=== PATIENT | female | born 1965 | race Caucasian/White ===

== ENCOUNTER 2018-12-22 22:20 | Inpatient (IN) | payer BC ==
[~2018-12-22] VITALS: Ht 165.1 cm; Wt 70.3 kg
[2018-12-22 22:24] VITALS: BP 132/94
[2018-12-22] MEDS ORDERED: MAXZIDE-25 MG1 EACH PO (22:29)
[2018-12-22] MEDS ORDERED: AMLODIPINE BESY10 MG PO (22:29)
[2018-12-22] MEDS ORDERED: ESTROGEN TOP (22:30)
[2018-12-22] MEDS ORDERED: ALLEGRA-D 12 H1 EAC1 PO (22:31)
[2018-12-22 22:51] LABS: ABSOLUTE NEUTROPHILS 16.4 thou/uL (1.4-8.2); BASOPHILS 0.5 % (0.0-2.0); EOSINOPHILS 0.1 % (0.0-3.0); HEMATOCRIT 44.5 % (37.0-47.0); HEMOGLOBIN 15.6 gm/dL (12.0-15.0); LYMPHOCYTES 3.8 % (24.0-44.0); MCH 30.3 pg (26.0-34.0); MCV 86.6 fL (80.0-100.0); MONOCYTES 3.9 % (1.0-8.0); PLATELET COUNT 310 thou/uL (150-400); POLYS 91.7 % (36.0-66.0); RBC 5.14 mil/uL (4.20-5.00); RDW 12.7 % (10.5-14.5); WBC 17.9 thou/uL (4.0-11.0)
[2018-12-22 23:07] LABS: ALBUMIN 4.8 g/dL (3.4-5.0); ANION GAP 11 mmol/L (7-16); BUN 9 mg/dL (7-18); CALCIUM 10.2 mg/dL (8.5-10.1); CHLORIDE 92 mmol/L (98-107); CO2 31 mmol/L (21-32); CREATININE 0.7 mg/dL (0.6-1.0); GLUCOSE 187 mg/dL (74-106); LIPASE 12122 U/L (73-393); SGOT 31 U/L (15-37); SGPT 69 U/L (30-65); SODIUM 134 mmol/L (136-145); TOTAL PROTEIN 8.7 g/dL (6.4-8.2); TROPONIN-I <0.06 ng/mL (<0.06)
[2018-12-22 23:08] LABS: POTASSIUM 2.6 mmol/L (3.5-5.1)
--- NOTE | 2018-12-22 23:08 | NUR ---
DR. GLYNN NOTIFIED OF CRITICAL POTASSIUM LEVEL 2.6
[2018-12-22 23:11] LABS: URINE BILIRUBIN NEGATIVE (Negative); URINE BLOOD NEGATIVE (Negative); URINE CLARITY CLEAR; URINE COLOR YELLOW; URINE GLUCOSE-RANDOM* NEGATIVE (Negative); URINE KETONES NEGATIVE (Negative); URINE LEUKOCYTES-REFLEX NEGATIVE (Negative); URINE NITRITE-REFLEX NEGATIVE (Negative); URINE PROTEIN (DIPSTICK) NEGATIVE (Negative); URINE UROBILINOGEN 0.2 E.U./dl (0.2-1.0)
[2018-12-22 23:54] LABS: CHOLESTEROL 275 mg/dL (<200); HDL CHOLESTEROL 54 mg/dL (>40); LDL CHOLESTEROL 199 mg/dL (<100); TC:HDL 5.1 Ratio (Not establshd); TRIGLYCERIDE 111 mg/dL (<150); VLDL 22 mg/dL (<40)
[2018-12-22 23:58] LABS: SERUM ASSESSMENT Clear
[2018-12-23] VITALS (8 sets, daily range): BP systolic 104–153; BP diastolic 69–84
--- NOTE | 2018-12-23 00:45 | NUR ---
PT ARRIVED ON UNIT FROM ER AT 0030. PT C/O MILD PAIN IN ABD, SAID PAIN MEDS IN ER HELPED. FLUIDS STARTED AND INFUSION OF KCL CONTINUED. PT DENIED NAUSEA AT THIS TIME. PT DENIED ANY FURTHER CONCERNS AT THIS TIME. WILL CONTINUE TO MONITOR.
[2018-12-23 05:07] LABS: HEMATOCRIT 38.3 % (37.0-47.0); MCH 30.5 pg (26.0-34.0); MCHC 35.3 g/dL (28.0-37.0); MCV 86.2 fL (80.0-100.0); RBC 4.44 mil/uL (4.20-5.00); RDW 12.6 % (10.5-14.5); WBC 15.8 thou/uL (4.0-11.0)
[2018-12-23 05:17] LABS: HEMOGLOBIN 13.5 gm/dL (12.0-15.0)
[2018-12-23 05:23] LABS: CALCIUM 8.8 mg/dL (8.5-10.1); CREATININE 0.5 mg/dL (0.6-1.0); MAGNESIUM 1.5 mg/dL (1.8-2.4)
[2018-12-23 05:32] LABS: POTASSIUM 2.9 mmol/L (3.5-5.1)
--- NOTE | 2018-12-23 06:28 | NUR ---
POTASSIUM AND MAG LOW THIS MORNING. PT STARTED ON ELECTROLYTE PROTOCOL AND BOTH ARE NOW BEING REPLACED. PT C/O ABD PAIN, BUT REPORTS IMPROVEMENT WITH PAIN MEDS. WILL CONTINUE TO MONITOR.
--- NOTE | 2018-12-23 09:20 | EKG ---
[place] [address] [address] [place] [address] ELECTROCARDIOGRAM REPORT Name: WILVER LOBATO Room #: 216-P ADM IN M.R.#: [id number] ������������������ Admission: 12/22/18 ������������������ Attend Phys: Tj Espinal Discharge: ������������������ Date of : 61 Report #: [id number] ����������������������������������������������������������������� [id number] THIS REPORT FOR: //name// 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[place] : 1965 Requested By: Michel Riddle Order Number: [id number] MD: Romeo Piedra Measurements Intervals [place]on Rate: 99 P: 29 KS: 174 QRS: -13 QRSD: 88 T: 30 QT: 400 QTc: 514 Interpretive Statements Sinus rhythm Prolonged QT interval No previous ECG available for comparison Electronically Signed On 12-23-2018 9:20:12 CDT by Romeo Piedra [email or web address] ��������������������������������������������� <ELECTRONICALLY SIGNED> ���������������������������������������� By: Romeo Piedra MD, [facility] ��������������������������������������������� 12/23/18 0920 [id number] Romeo Piedra MD, FACC /EPI
--- NOTE | 2018-12-24 04:56 | NUR ---
ASSUMED PT CARE AT 1900. PT A/OX4, VITAL SIGNS STABLE, ASSESSMENT CHARTED. PAIN ADEQAUTELY MANAGED WITH PAIN MEDICATION. NO COMPLAINTS OF SOB. NO COMPLAINTS OF NAUSEA OR VOMITING. CALLS FOR HELP TO THE BATHROOM. PT RESTED WLL THROUGH THE NIGHT. PROGRESSING TOWARD PLAN OF CARE. STRICT NPO MAINTAINED. WILL CONTINUE TO MONITOR.
[2018-12-24 05:29] VITALS: BP 121/71
[2018-12-24 05:48] LABS: HEMATOCRIT 35.7 % (37.0-47.0); HEMOGLOBIN 12.5 gm/dL (12.0-15.0); MCH 30.9 pg (26.0-34.0); MCHC 35.1 g/dL (28.0-37.0); MCV 88.2 fL (80.0-100.0); RBC 4.05 mil/uL (4.20-5.00); RDW 12.6 % (10.5-14.5); WBC 12.7 thou/uL (4.0-11.0)
[2018-12-24 05:59] LABS: CALCIUM 8.7 mg/dL (8.5-10.1); CREATININE 0.6 mg/dL (0.6-1.0); TOTAL BILIRUBIN 0.9 mg/dL (<0.1-1.0); TOTAL PROTEIN 6.3 g/dL (6.4-8.2)
[2018-12-24 06:03] LABS: POTASSIUM 2.9 mmol/L (3.5-5.1)
[2018-12-24 07:30] VITALS: BP 111/70
[2018-12-24 11:28] VITALS: BP 125/84
--- NOTE | 2018-12-24 12:35 | HC ---
[facility] [address] [place] [address] CONSULTATION Name: WILVER LOBATO Room #: 216-P ADM IN M.R.#: [id number] Admission: 12/22/18 ������������������ Attend Phys: Tj Espinal Discharge: ������������������ Date of : 61 Report #: [id number] THIS REPORT FOR: //name// CC: JACQUELINE physician/PCP Tj Espinal DATE OF SERVICE: 12/23/2018 REASON FOR CONSULTATION: Abdominal pain, acute pancreatitis, etiology unknown. HISTORY OF PRESENT ILLNESS: The patient is a 53-year-old who started to have pain yesterday while driving to [place], [place]. The patient was there at [place], [place], visiting her daughter, I think the week before, and had trouble with her car. She was on the way back down there when she developed pain. She denied anything unusual. She had one episode of nausea and vomiting and threw up salad that she ate for lunch. The patient's pain progressed. Pain was in the upper abdomen. Did seem to go to her back, but she has some chronic issues. The patient did have her gallbladder removed around 2006. She says she did have gallstones. She has never had pains like this before and she does not remember if intraoperative cholangiogram was done with her gallbladder surgery. She does say her cholesterol is slightly elevated, but her triglycerides are normal. No familial history of pancreatitis. The patient came down to [place] from [place], [place] to this hospital because her fbfiolz-kl-zod, Dr. Mariscal, was here. The patient had laboratory performed, which showed a markedly elevated lipase of 12,000. Mildly elevated SGPT and alkaline phosphatase. Normal bilirubin. Her white count is elevated at 18,000. Lactic acid was normal. Potassium was low. CT scan did show evidence of acute pancreatitis with stranding, particularly on the left side. Her pain is mostly on the left also. The head of the pancreas did have an abnormal appearance. I do not know if this is inflammatory or neoplastic. It does appear that her pancreatic duct seems to be more prominent to me. Nothing else acute was seen on the CT scan. PHYSICAL EXAMINATION: GENERAL: The patient is not in acute distress. She is little bit in and out sleepy from her, I suspect from narcotics. She is not febrile. LUNGS: Clear. ABDOMEN: Does show tenderness in the upper part of the abdomen, no fullness or mass. Lower part of the abdomen is unremarkable. IMPRESSION: The patient is a 53-year-old with acute pancreatitis. This patient does not drink hardly any. She did have gallbladder problems, but her gallbladder was removed in 2006. I doubt that if this is retained stone related. No obvious source is currently identified for her pancreatitis. The head of the pancreas does have an irregular appearance. [address] [address] CONSULTATION Name: WILVER LOBATO Room #: 216-P ADM IN M.R.#: [id number] Admission: 12/22/18 ������������������ Attend Phys: Tj Espinal Discharge: ������������������ Date of : 61 Report #: [id number] RECOMMENDATION: I agree with the current treatment of n.p.o., IV fluids. I do not think antibiotics necessary at this point. Her white count did come down already today. At some point, she may need EUS, possibly MRCP. This was discussed with Dr. Mariscal, [id number]-oon. ��������������������������������������������� <ELECTRONICALLY SIGNED> ���������������������������������������� By: Raymond Puente MD ��������������������������������������������� 12/24/18 1235 [id number] Raymond Puente MD /nt
--- NOTE | 2018-12-24 15:12 | NUR ---
ASSESSMENT CHARTED. PT ALERT AND ORIENTED. PLEASANT AND COOPERATIVE WITH CARES. REPORT FEELING MUCH BETTER TODAY. PRN PAIN MED GIVEN WITH PARTIAL RELIEF. TOLERATED CLEAR LIQUID DIET WELL. SEEN BY DR. KHOURY, DR. DAVIS, AND . NO CONCERNS AT THIS TIME. WILL CONTINUE TO MONITOR.
[2018-12-24 15:52] VITALS: BP 123/79
[2018-12-24 16:09] VITALS: BP 132/91
[2018-12-24 19:33] VITALS: BP 110/75
[2018-12-25 01:05] LABS: GLYCOHEMOGLOBIN (HGB A1C) 5.6 % (4.8-5.6)
--- NOTE | 2018-12-25 03:24 | NUR ---
ASSUMED PT CARE AT 1900. PT A/OX4, VITAL SIGNS STABLE, ASSESSMENT CHARTED. PAIN ADEQAUTELY MANAGED WITH PAIN MEDICATION. NO COMPLAINTS OF SOB, OR NAUSEA. TOLERATING CLEAR LIQUIDS APPROPRIATELY. PT MENTIONED SHE IS PASSING GAS. RESTED WELL THROUGH THE NIGHT. PROGRESSING TOWARD PLAN OF CARE. WILL CONTINUE TO MONITOR.
[2018-12-25 04:53] VITALS: BP 130/82
[2018-12-25 05:39] LABS: ALBUMIN 2.8 g/dL (3.4-5.0); CALCIUM 8.7 mg/dL (8.5-10.1); CREATININE 0.4 mg/dL (0.6-1.0); MAGNESIUM 1.5 mg/dL (1.8-2.4); POTASSIUM 3.4 mmol/L (3.5-5.1); TOTAL PROTEIN 6.3 g/dL (6.4-8.2)
[2018-12-25 05:42] LABS: ABSOLUTE NEUTROPHILS 9.1 thou/uL (1.4-8.2); BASOPHILS 0.3 % (0.0-2.0); EOSINOPHILS 2.7 % (0.0-3.0); HEMATOCRIT 32.9 % (37.0-47.0); HEMOGLOBIN 11.6 gm/dL (12.0-15.0); LYMPHOCYTES 10.6 % (24.0-44.0); MCH 31.1 pg (26.0-34.0); MCHC 35.4 g/dL (28.0-37.0); MCV 87.8 fL (80.0-100.0); PLATELET COUNT 195 thou/uL (150-400); POLYS 78.4 % (36.0-66.0); RBC 3.74 mil/uL (4.20-5.00); RDW 12.6 % (10.5-14.5); WBC 11.6 thou/uL (4.0-11.0)
[2018-12-25 08:47] VITALS: BP 127/81
[2018-12-25 14:42] VITALS: BP 124/74
--- NOTE | 2018-12-25 16:28 | NUR ---
ASSESSMENT CHARTED. PT ALERT AND ORIENTED. RECEIVED PRN PAIN FOP LOWER BACK PAIN WITH PARTIAL RELIEF. HEATING PAD APPLIED. PT REPORT FEELING MUCH BETTER TODAY. NO CONCERNS AT THIS TIME. PROGRESSING WELL TOWARDS DISCHARGE GOAL. WILL CONTINUE TO MONITOR.
[2018-12-25 18:21] VITALS: BP 123/72
[2018-12-25 20:00] VITALS: BP 141/80
--- NOTE | 2018-12-26 03:35 | NUR ---
ASSUMED PT CARE AT 1900. PT A/OX4, VITAL SIGNS STABLE, ASSESSMENT CHARTED. BACK PAIN ADEQAUTELY MANAGED WITH PAIN MEDICATION AND HEATING PAD. NO ACUTE CHANGES THROUGH THE NIGHT. CALLS APPROPRIATELY. RESTED WELL THROUGH THE NIGHT. PROGRESSING TOWARD PLAN OF CARE. WILL CONTINUE TO MONITOR.
[2018-12-26 04:00] VITALS: BP 124/71
[2018-12-26 05:21] LABS: HEMATOCRIT 34.9 % (37.0-47.0); MCH 30.4 pg (26.0-34.0); MCHC 34.3 g/dL (28.0-37.0); MCV 88.7 fL (80.0-100.0); RBC 3.94 mil/uL (4.20-5.00); RDW 12.5 % (10.5-14.5); WBC 8.2 thou/uL (4.0-11.0)
[2018-12-26 05:22] LABS: CALCIUM 9.1 mg/dL (8.5-10.1); CREATININE 0.5 mg/dL (0.6-1.0); MAGNESIUM 1.8 mg/dL (1.8-2.4); POTASSIUM 3.8 mmol/L (3.5-5.1)
[2018-12-26 08:18] VITALS: BP 133/85
[2018-12-26 11:49] VITALS: BP 141/76
[2018-12-26 15:09] LABS: IgG 879 mg/dL (700-1600)
[2018-12-26] MEDS ORDERED: ACETAMINOPHEN325 M1 PO (15:14)
[2018-12-26] MEDS ORDERED: LEVAQUIN 500 M500 M2 PO (15:14)
[2018-12-26] MEDS ORDERED: HYDROCODON-ACE1 EAC7 PO (15:14)
[2018-12-26] MEDS ORDERED: PEPCID20 MG PO (15:14)
[2018-12-26 15:32] VITALS: BP 141/76
--- NOTE | 2018-12-26 15:59 | NUR ---
ASSESSMENT CHARTED. PT ALERT AND ORIENTED. VSS. REPORT FEELING BETTER TODAY. IV ABX GIVEN. ORDERS GIVEN TO DISCHARGE PT TO HOME. DISCHARGE INSTRUCTIONS GIVEN TO PT. PT VERBERLIZE UNDERSTANDING. PT LEFT THE FACILITY ACCOMPANIED BY THE SON.
== END 2018-12-26 16:03 | disposition home or self-care (01) | DRG 438 ==
LOC: ER 22:20 → EROBS 23:45 → 2N 23:45 → ENTRNSPT 12-26 15:44 → EDTRNSPTSTS 12-26 15:49 → 2N 12-26 16:03
PROVIDERS: Emergency Medicine; Internal Medicine; Nurse Practitioner; Nurse Practitioner Acute Care; ADMIT Hospitalist
DX: K85.30 Drug induced acute pancreatitis without necrosis or infection (principal); J15.9 Unspecified bacterial pneumonia; M19.90 Unspecified osteoarthritis, unspecified site; E87.6 Hypokalemia; I10 Essential (primary) hypertension; E87.5 Hyperkalemia; R73.9 Hyperglycemia, unspecified; E83.42 Hypomagnesemia; E78.5 Hyperlipidemia, unspecified; K76.0 Fatty (change of) liver, not elsewhere classified; K21.9 Gastro-esophageal reflux disease without esophagitis; D72.829 Elevated white blood cell count, unspecified; Z90.710 Acquired absence of both cervix and uterus; Z79.899 Other long term (current) drug therapy; Z90.49 Acquired absence of other specified parts of digestive tract; Z80.0 Family history of malignant neoplasm of digestive organs; Z84.89 Family history of other specified conditions; Z98.891 History of uterine scar from previous surgery; Z82.49 Family history of ischemic heart disease and other diseases of the circulatory system; Z82.3 Family history of stroke; Z80.3 Family history of malignant neoplasm of breast; T47.1X5A Adverse effect of other antacids and anti-gastric-secretion drugs, initial encounter; Y92.89 Other specified places as the place of occurrence of the external cause
CPT/HCPCS: 10081; 10797